=== PATIENT | female | born 1990 | race Caucasian/White ===

== ENCOUNTER 2017-07-28 20:10 | Emergency (ER) | payer OTHER ==
[~2017-07-28] VITALS: Ht 165.1 cm; Wt 65.8 kg
[2017-07-28 20:12] VITALS: BP 133/98
[2017-07-28] MEDS ORDERED: SILVER SULF. CRM 1% , 25GM TP ONE (20:30)
[2017-07-28] MEDS ORDERED: SILVER SULF. CRM 1% , 25GM ONE (21:08)
[2017-07-28] MEDS ORDERED: HYDROmorphone 2 MG/ML, 1ML ONE (21:14)
[2017-07-28] MEDS ORDERED: HYDROmorphone 1 MG/ML, 1ML IM ONE (21:30)
[2017-07-28] MEDS ORDERED: ONDANSETRON ODT 4 MG ONE (22:39)
[2017-07-28] MEDS ORDERED: ONDANSETRON ODT 4 MG PO ONE (23:00)
== END 2017-07-28 22:38 | disposition home or self-care (01) ==
LOC: ED 22:32
DX: T21.24XA Burn of second degree of lower back, initial encounter (principal); T31.0 Burns involving less than 10% of body surface; X08.8XXA Exposure to other specified smoke, fire and flames, initial encounter; Y93.89 Activity, other specified; Y92.89 Other specified places as the place of occurrence of the external cause; Y99.8 Other external cause status
CPT/HCPCS: 96372; 99283; J1170; Q0162

== ENCOUNTER 2019-08-03 16:32 | Emergency (ER) | payer MEDICAID, OTHER ==
[~2019-08-03] VITALS: Ht 165.1 cm; Wt 66.7 kg
[2019-08-03 16:36] VITALS: BP 129/61
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
[2019-08-03] MEDS ORDERED: LIDOCAINE 1%, 10ML INFIL ONE (17:00)
[2019-08-03] MEDS ORDERED: LIDOCAINE-MPF 1%, 5ML ONE (17:12)
--- NOTE | 2019-08-03 17:22 | NUR ---
BREAK RN: EN FRAZIER AT BEDSIDE APPLYING LIDO TO PT LAC.
--- NOTE | 2019-08-03 17:37 | NUR ---
SUTURING COMPLETED. PT FULLY DRESSED, SITTING ON CHAIR IN ROOM, AWAITING DC.
== END 2019-08-03 18:23 | disposition home or self-care (01) ==
LOC: ED 17:30
DX: S01.511A Laceration without foreign body of lip, initial encounter (principal); S09.90XA Unspecified injury of head, initial encounter; F17.200 Nicotine dependence, unspecified, uncomplicated; Y04.8XXA Assault by other bodily force, initial encounter; Y93.89 Activity, other specified; Y92.89 Other specified places as the place of occurrence of the external cause; Y99.8 Other external cause status
CPT/HCPCS: 12011; 99283

== ENCOUNTER 2019-09-24 01:45 | Emergency (ER) | payer MEDICAID ==
[~2019-09-24] VITALS: Ht 165.1 cm; Wt 66.6 kg
[2019-09-24] MEDS ORDERED: LIDOCAINE-MPF 1%, 5ML INFIL ONE (02:30)
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
[2019-09-24] MEDS ORDERED: LIDOCAINE-MPF 1%, 5ML ONE (02:38)
[2019-09-24 02:52] LABS: HCG UR SG 1.034 (1.003-1.030)
[2019-09-24] MEDS ORDERED: NEOSPORIN OINT. PKT 1 PACKET ONE (03:02)
--- NOTE | 2019-09-24 03:04 | NUR ---
TERESA MESSER AT BS FOR SUTURES. PT NAD, VSS, WCTM. POST WOUND CARE, LAC TO BE DRESSED AND BANDAGED THEN PT TO DC.
--- NOTE | 2019-09-24 03:14 | NUR ---
WOUND DRESSED. Patient given discharge instructions and they have confirmed that they understand the instructions. Patient ambulatory with steady gait. NAD, VSS. NO PERSONAL BELONGINGS LEFT IN ROOM AFTER DC.
[2019-09-24 03:28] VITALS: BP 122/69
== END 2019-09-24 04:12 | disposition home or self-care (01) ==
LOC: ED 03:33
DX: S01.81XA Laceration without foreign body of other part of head, initial encounter (principal); Y04.8XXA Assault by other bodily force, initial encounter; Y93.89 Activity, other specified; Y92.098 Other place in other non-institutional residence as the place of occurrence of the external cause; Y99.8 Other external cause status
CPT/HCPCS: 12051; 81025; 99284

== ENCOUNTER 2020-09-01 07:19 | Emergency (ER) | payer MEDICAID ==
[~2020-09-01] VITALS: Ht 165.1 cm; Wt 61.2 kg
--- NOTE | 2020-09-01 07:32 | NUR ---
PT WALKED BACK TO ROOM W/ INSTRUCTION TO CHANGE INTO GOWN. PA IS BEDSIDE.
[2020-09-01] MEDS ORDERED: LIDOCAINE-MPF 1%, 5ML INFIL ONE (08:00)
--- NOTE | 2020-09-01 08:02 | NUR ---
ASSUMED CARE OF PT. SHE IS HERE FOR SPIDER BITE X2 DAYS, AND PAIN IS RADIATING TO NECK AND DOWN SHOULDERS. NADN. CALL LIGHT W/IN REACH.
[2020-09-01] MEDS ORDERED: LIDOCAINE-MPF 1%, 5ML ONE (08:05)
--- NOTE | 2020-09-01 08:23 | NUR ---
CIVIL STRUCTURAL DESIGNER PROVIDED SUPPLIES FOR I&D, LIDOCAINE BEDSIDE. PA IS BEDSIDE TO PERFORM I&D.
[2020-09-01] MEDS ORDERED: NEOSPORIN OINT. PKT 1 PACKET ONE (08:31)
[2020-09-01 08:48] VITALS: BP 117/66
--- NOTE | 2020-09-01 08:49 | NUR ---
Waiting for printed circuit board pcb designer to care for site. Pt given discharge instructions and they have confirmed that they understand the instructions. Patient ambulatory with steady gait.
== END 2020-09-01 09:21 | disposition home or self-care (01) ==
LOC: ED 07:49
DX: L02.11 Cutaneous abscess of neck (principal); F17.210 Nicotine dependence, cigarettes, uncomplicated
CPT/HCPCS: 10060

== ENCOUNTER 2020-10-04 16:52 | Emergency (ER) | payer MEDICAID, OTHER ==
[~2020-10-04] VITALS: Ht 165.1 cm; Wt 60.0 kg
[2020-10-04 18:25] LABS: BASOPHILS % (AUTO) 1 % (0-1); EOSINOPHILS % (AUTO) 0 % (1-7); LYMPHOCYTES % (AUTO) 12 % (22-44); MEAN CORPUSCULAR HEMOGLOBIN 34.8 pg (27.0-34.8); MEAN CORPUSCULAR HGB CONC 34.5 g/dL (32.4-35.8); MEAN PLATELET VOLUME 8.1 fL (7.4-10.4); MONOCYTES % (AUTO) 9 % (2-9); NEUTROPHILS % (AUTO) 78 % (42-75); PLATELET COUNT 206 x10^3/uL (130-400); RED BLOOD COUNT 4.24 x10^6/uL (3.82-5.3); RED CELL DISTRIBUTION WIDTH 12.9 % (9.6-15.2)
[2020-10-04 18:32] LABS: ALBUMIN 3.6 g/dL (3.4-5.0); ANION GAP 10 mmol/L (5-15); CHLORIDE 99 mmol/L (98-107)
[2020-10-04 18:38] LABS: ALANINE AMINOTRANSFERASE 258 U/L (12-78); ALKALINE PHOSPHATASE 73 U/L (45-117); BILIRUBIN,TOTAL 1.3 mg/dL (0.2-1.0); CREATININE 0.87 mg/dL (0.55-1.02); TOTAL PROTEIN 8.1 g/dL (6.4-8.2)
--- NOTE | 2020-10-04 19:22 | NUR ---
bi consultant note: Pt to room from lobby, ambulatory with steady gait.
--- NOTE | 2020-10-04 19:35 | NUR ---
PT PRESENTS TO ER FOR RIGHT SIDED ABDOMINAL PAIN RADIATING TO THE BACK, PT STATES THIS STARTED 2 DAYS AGO, PAIN IS ASSOCIATED WITH N/V, PT A/OX3
--- NOTE | 2020-10-04 19:40 | NUR ---
report from bianca rn with reassessment patient reports nausea/pain 100 improved updated on estimated poc (awaiting ua results)
[2020-10-04] MEDS ORDERED: FAMOTIDINE 20 MG TABLET ONE (19:41)
[2020-10-04] MEDS ORDERED: MAALOX/HYOSCYAMINE/LIDOCAINE 45 ML BTL ONE (19:41)
[2020-10-04] MEDS ORDERED: FAMOTIDINE 20 MG TABLET PO ONE (20:00)
[2020-10-04] MEDS ORDERED: ONDANSETRON ODT 4 MG PO ONE (20:00)
[2020-10-04] MEDS ORDERED: MAALOX/HYOSCYAMINE/LIDOCAINE 45 ML BTL PO ONE (20:00)
[2020-10-04 20:28] LABS: MICROSCOPIC INDICATED
[2020-10-04 20:41] VITALS: BP 120/69
--- NOTE | 2020-10-04 20:43 | NUR ---
placed up for recheck as all testing resulted -feels 100% better
== END 2020-10-04 21:40 | disposition home or self-care (01) ==
LOC: ED 19:25
DX: K29.20 Alcoholic gastritis without bleeding (principal); F10.10 Alcohol abuse, uncomplicated; N30.00 Acute cystitis without hematuria; K70.10 Alcoholic hepatitis without ascites; R94.5 Abnormal results of liver function studies; R10.11 Right upper quadrant pain; R10.13 Epigastric pain; Y90.0 Blood alcohol level of less than 20 mg/100 ml
CPT/HCPCS: 36415; 76700; 80053; 81001; 83690; 84703; 85025; 87077; 87086; 87186; 99284